=== PATIENT | female | born 1995 | race American Indian/Alaskan Native ===

== ENCOUNTER 2017-02-25 17:39 | Emergency (ER) | payer SELFPAY ==
--- NOTE | 2017-02-25 20:42 | Emergency Department Report ---
ED Back Pain/Injury HPI - General Chief Complaint: Back Pain/Injury Stated Complaint: BACK PAIN Source: patient Mode of arrival: Ambulatory Limitations: No Limitations - History of Present Illness Initial Comments: 21 year old female presents to ED with left sided back pain x4-5 days. patient is stable, ambulatory, neurologically intact and in no acute distress. patient denies fevers, injury, trauma, dysuria, incontinence,vaginal discharge, vaginal bleeding. MD Complaint: back pain -: Sudden, days(s) (5) Similar Symptoms Previously: No Radiation: none Severity: mild Quality: sharp Consistency: constant Improves With: medication Worsens With: none Associated Symptoms: denies other symptoms. denies: confusion, weakness, chest pain, numbness, difficulty walking, cough, difficulty urinating, diaphoresis, incontinence, fever/chills, constipation, headaches, abdominal pain, loss of appetite, malaise, nausea/vomiting, rash, seizure, shortness of breath, syncope - Related Data Previous Rx's Medication Instructions Recorded Last Taken Type Meloxicam [Mobic] 7.5 mg PO QDAY #5 tablet 02/26/17 Unknown Rx methOCARBAMOL [Robaxin TAB] 500 mg PO TID #15 tab 02/26/17 Unknown Rx Allergies Allergy/AdvReac Type Severity Reaction Status Date / Time No Known Allergies Allergy Verified 02/25/17 17:55 ED Review of Systems ROS: Stated complaint: BACK PAIN Other details as noted in HPI Constitutional: denies: chills, fever Eyes: denies: eye pain, eye discharge, vision change ENT: denies: ear pain, throat pain Respiratory: denies: cough, shortness of breath, wheezing Cardiovascular: denies: chest pain, palpitations Endocrine: no symptoms reported Gastrointestinal: denies: abdominal pain, nausea, vomiting, diarrhea Genitourinary: denies: urgency, dysuria, frequency, hematuria, discharge Musculoskeletal: back pain. denies: joint swelling, arthralgia Skin: denies: rash, lesions Neurological: denies: headache, weakness, paresthesias Psychiatric: denies: anxiety, depression Hematological/Lymphatic: denies: easy bleeding, easy bruising ED Past Medical Hx - Past Medical History Previous Medical History?: No - Surgical History Past Surgical History?: No - Social History Smoking Status: Never Smoker Substance Use Type: None - Medications Home Medications: Home Medications Medication Instructions Recorded Confirmed Last Taken Type Meloxicam [Mobic] 7.5 mg PO QDAY #5 tablet 02/26/17 Unknown Rx methOCARBAMOL [Robaxin TAB] 500 mg PO TID #15 tab 02/26/17 Unknown Rx ED Physical Exam - General Limitations: No Limitations General appearance: alert, in no apparent distress - Head Head exam: Present: atraumatic, normocephalic - Eye Eye exam: Present: normal appearance, EOMI - ENT ENT exam: Present: mucous membranes moist - Neck Neck exam: Present: normal inspection, full ROM. Absent: tenderness - Respiratory Respiratory exam: Present: normal lung sounds bilaterally. Absent: respiratory distress, wheezes, rales - Cardiovascular Cardiovascular Exam: Present: regular rate, normal rhythm. Absent: systolic murmur, diastolic murmur, rubs, gallop - GI/Abdominal GI/Abdominal exam: Present: soft, normal bowel sounds. Absent: distended, tenderness, guarding, rebound - Rectal Rectal exam: Present: deferred - Extremities Exam Extremities exam: Present: normal inspection, full ROM. Absent: tenderness - Back Exam Back exam: Present: normal inspection, full ROM, tenderness (mild left sided tenderness) - Neurological Exam Neurological exam: Present: alert, oriented X3, normal gait - Psychiatric Psychiatric exam: Present: normal affect, normal mood - Skin Skin exam: Present: warm, dry, intact, normal color. Absent: rash ED Course Vital Signs 02/25/17 02/25/17 02/26/17 17:55 21:36 00:52 Temperature 98.2 F 98 F 98 F Pulse Rate 81 62 70 Respiratory 16 18 18 Rate Blood Pressure 144/84 Blood Pressure 116/72 114/63 [Left] O2 Sat by Pulse 98 100 100 Oximetry ED Medical Decision Making - Lab Data Labs 02/25/17 20:30 Urine Color Yellow Urine Turbidity Clear Urine pH 6.0 Ur Specific Coral 1.026 Urine Protein <15 mg/dl Urine Glucose (UA) Neg Urine Ketones Neg Urine Blood Neg Urine Nitrite Neg Urine Bilirubin Neg Urine Urobilinogen < 2.0 Ur Leukocyte Esterase Tr Urine WBC (Auto) 4.0 Urine RBC (Auto) 2.0 U Epithel Cells (Auto) 3.0 Urine Mucus Few Urine HCG, Qual Negative - Radiology Data Radiology results: report reviewed XR lumbar spine Normal examination - Medical Decision Making 21 year old female presents to ED with lower back pain x4-5 days. patient has no UTI present in urine and negative preg test. patient has no acute pathology on imaging. patient is stable, neurologically intact and in no acute distress. patient has resolved pain after pain medication and is walking around hallway asking when can she go home. patient has normal observed gait. Critical care attestation.: If time is entered above; I have spent that time in minutes in the direct care of this critically ill patient, excluding procedure time. ED Disposition Clinical Impression: Lower back pain Qualifiers: Chronicity: acute Back pain laterality: left Sciatica presence: without sciatica Qualified Code(s): M54.5 - Low back pain Disposition: DC- TO HOME OR SELFCARE Is pt being admited?: No Does the pt Need Aspirin: No Condition: Stable Instructions: Acute Low Back Pain (ED) Prescriptions: Meloxicam [Mobic] 7.5 mg PO QDAY #5 tablet methOCARBAMOL [Robaxin TAB] 500 mg PO TID #15 tab Referrals: PRIMARY CARE, [Primary Care Provider] - 3-5 Days Forms: Work/School Release Form(ED)
[2017-02-25 21:00] LABS: Bilirubin,Urine NEG (Negative); Blood,Urine NEG (Negative); Ketones,Urine NEG (Negative); Leukocyte Esterase,Urine TR (Negative); Mucus,Urine FEW /HPF; Nitrite,Urine NEG (Negative); Protein,Urine <15 mg/dL mg/dL (Negative); Urobilinogen,Urine < 2.0 mg/dL (<2.0)
[2017-02-25] MEDS ORDERED: FLEXERIL PO ONE (21:02)
[2017-02-25] MEDS ORDERED: TORADOL IM ONE (21:02)
[2017-02-25] MEDS ORDERED: NORCO 5/325 PO ONE (21:02)
--- NOTE | 2017-02-26 00:27 | XRay Report ---
FINAL REPORT PROCEDURE: XR SPINE LUMBOSACRAL 2-3V TECHNIQUE: Lumbar spine radiographs, including AP, lateral, and lumbosacral spot views. CPT 49579 HISTORY: lower back pain COMPARISON: No prior studies are available for comparison. FINDINGS: Alignment: Normal. Vertebral body heights/Disk spaces: Normal. Fracture(s): None. Facets: Normal. Bone mineralization: Normal. IMPRESSION: Normal Examination.
[2017-02-26 00:54] VITALS: BP 114/63
== END 2017-02-26 01:00 | disposition home or self-care (01) ==
LOC: ED 17:39
DX: M54.5 Low back pain (principal)
CPT/HCPCS: 72100; 81001; 81025; 99284; J1885